=== PATIENT | male | born 1985 | race African-American/Black ===

== ENCOUNTER 2016-11-03 11:43 | Emergency (ER) | payer OTHER ==
[2016-11-03] MEDS ORDERED: cefTRIAXone VIAL(*) 250 MG VIAL IM ONE (13:11)
[2016-11-03] MEDS ORDERED: Azithromycin TAB* 250 MG PO ONE (13:11)
[2016-11-03] MEDS ORDERED: Lidocaine 1% MPF* 2 ML VIAL INJ ONE (13:14)
--- NOTE | 2016-11-03 13:18 | UC ---
blanca Peoples Timothy, scribed for Apoorva Degroot MD on 11/03/16 at 1305 . General HPI - HPI Summary HPI Summary: Flaco Fan is a 31 yo male presenting to [facility] after being sent here by his PCP for injection of cetriaxone for possible STD. He states he has had penile discharge for the past week, with dysuria. No hematuria. No lesions. SO with sx and getting examined today as well. Pt denies abdominal pain. No n/v No bowel changes. Pt had urinalysis at PCP which revealed 2+ wbc. pt with h/o STD and this feels similar. He states his Sx feel similar to episodes in the past. He denies any PMHx. Pt medication list reviewed this visit. - History of Current Complaint Chief Complaint: UCGU Stated Complaint: UTI Time Seen by Provider: 11/03/16 12:59 Hx Obtained From: Patient Onset/Duration: Sudden Onset, Lasting Days, Still Present Timing: Intermittent Episodes Lasting: - with urination Onset Severity: Moderate Current Severity: Mild Associated Signs & Symptoms: Positive: Dysuria, Other - penile discharge - Allergy/Home Medications Allergies/Adverse Reactions: Allergies Allergy/AdvReac Type Severity Reaction Status Date / Time No Known Allergies Allergy Verified 11/03/16 11:51 Home Medications: Home Medications NK [No Home Medications Reported] 11/03/16 [History Confirmed 11/03/16] PMH/Surg Hx/FS Hx/Imm Hx Previously Healthy: Yes - Surgical History Surgical History: None - Family History Known Family History: Positive: Other - breast CA Negative: Cardiac Disease, Diabetes - Social History Alcohol Use: Occasionally Substance Use Type: Marijuana Smoking Status (MU): Heavy Every Day Tobacco Smoker Type: Cigarettes Amount Used/How Often: 1 ppd Have You Smoked in the Last Year: Yes Household Exposure Type: Cigarettes Review of Systems Constitutional: Negative Skin: Negative Eyes: Negative ENT: Negative Respiratory: Negative Cardiovascular: Negative Gastrointestinal: Negative Genitourinary: Dysuria, Other - penile discharge Motor: Negative Neurovascular: Negative Musculoskeletal: Negative Neurological: Negative Psychological: Negative All Other Systems Reviewed And Are Negative: Yes Physical Exam Triage Information Reviewed: Yes Appearance: Well-Appearing, No Pain Distress, Well-Nourished Vital Signs: Initial Vital Signs Temp 98.8 F 11/03/16 11:46 Pulse 65 11/03/16 11:46 Resp 18 11/03/16 11:46 BP 107/68 11/03/16 11:46 Pulse Ox 98 11/03/16 11:46 Vital Signs Reviewed: Yes Eye Exam: Normal ENT Exam: Normal Dental Exam: Normal Neck exam: Normal Neck: Positive: 1 Respiratory Exam: Normal Cardiovascular Exam: Normal Abdominal Exam: Normal Abdomen Description: Positive: Nontender, No Organomegaly, Soft. Negative: CVA Tenderness (R), CVA Tenderness (L) Bowel Sounds: Positive: Present Musculoskeletal Exam: Normal Neurological Exam: Normal Psychological Exam: Normal Skin Exam: Normal Course/Dx - Course Course Of Treatment: Flaco Fna is a 31 yo male presenting to [facility] with penile discharge and dysuria for the past week, seen by his PCP urine with 2+ wbc and sent here for tx. will check urine gc/ch. Im ceftriaxone and oral zithromax. d/w pt STD prevention. aware not treating or testing for hiv, hep and other STDs - Differential Dx - Multi-Symptom Provider Diagnoses: penile discharge Discharge - Discharge Plan Condition: Stable Disposition: HOME Patient Education Materials: Nonspecific Urethritis in Men (ED) Referrals: Richard Grossman MD [Primary Care Provider] - If Needed Additional Instructions: - You were treated for a presumed sexually transmitted disease today based of your symptoms and your urine result. Your urine was sent specifically for testing of gonorrhea and Chlamydia. - your partners should be tested and evaluated for treatment as well - the site of your injection may have discomfort tomorrow- this is normal. Okay to alternate ibuprofen (Advil, motrin) and tylenol for pain - Using a condom with all intercourse relations will decrease contraction of sexually transmitted diseases. You were not tested for other sexually transmitted such as HIV, Hepatitis - contact your doctor or return with questions or concerns Follow up with your primary care physician regrading your visit to urgent care today. Return to urgent care or the emergency department with any new symptoms or questions or concerns. The documentation as recorded by the blanca chaves Timothy accurately reflects the service I personally performed and the decisions made by me, Apoorva Degroot MD.
[2016-11-03 13:52] VITALS: BP 128/79
== END 2016-11-03 13:52 | disposition home or self-care (01) ==
LOC: UCEAST 11:43
DX: R36.9 Urethral discharge, unspecified (principal); Z72.0 Tobacco use
CPT/HCPCS: 87491; 87591; 96372; 99212; A9270-GY; G0463; J0696

== ENCOUNTER → 2017-04-23 07:14 | Emergency (ER) | payer OTHER ==
[~2017-04-23 07:14] MED LIST: Azithromycin TAB* 250 MG PO ONE; Lidocaine 1%* 5 ML VIAL ONE; cefTRIAXone VIAL(*) 250 MG VIAL IM ONE
[2017-04-23 07:43] LABS: Urine Bilirubin Negative (Negative); Urine Glucose Negative (Negative); Urine Nitrite Negative (Negative)
[2017-04-23 09:18] VITALS: BP 134/90
--- NOTE | 2017-04-24 10:12 | ED ---
Lucien Peoples Stephanie, scribed for Kishan Worley MD on 04/23/17 at 0906 . GI/ HPI - HPI Summary HPI Summary: Pt is a 1 y/o M presenting to the ED with c/o penal discharge that occurred after unprotected oral sex within the last two days. Symptoms include a hot, burning sensation and white discharge with urination. Pt denies fever. Pt denies blood in mouth of partner. - History of Current Complaint Chief Complaint: EDUrogenitalProblems Time Seen by Provider: 04/23/17 08:28 Stated Complaint: GROIN PAIN Hx Obtained From: Patient Onset/Duration: Started Days Ago - 2 Timing: Constant Pain Intensity: 2 Additional Locations for Males: Penis Pain Characteristics: Burning Associated Signs and Symptoms: Positive: Discharge - white, New Sexual Partner Additional Signs & Symptoms: Positive: Penile Discharge Aggravating Factor(s): Nothing Alleviating Factor(s): Nothing - Allergy/Home Medications Allergies/Adverse Reactions: Allergies Allergy/AdvReac Type Severity Reaction Status Date / Time No Known Allergies Allergy Verified 11/03/16 11:51 PMH/Surg Hx/FS Hx/Imm Hx Endocrine/Hematology History: Denies: Hx Diabetes, Hx Thyroid Disease Cardiovascular History: Denies: Hx Hypertension Respiratory History: Denies: Hx Asthma, Hx Chronic Obstructive Pulmonary Disease (COPD) GI History: Denies: Hx Ulcer Infectious Disease History: No Infectious Disease History: Denies: Hx Hepatitis, Hx Human Immunodeficiency Virus (HIV), History Other Infectious Disease, Traveled Outside the [place] in Last 30 Days - Family History Known Family History: Positive: Other - breast CA Negative: Cardiac Disease, Diabetes - Social History Alcohol Use: Occasionally Substance Use Type: Reports: Marijuana Smoking Status (MU): Heavy Every Day Tobacco Smoker Type: Cigarettes Amount Used/How Often: 1 ppd Have You Smoked in the Last Year: Yes Review of Systems Negative: Fever, Chills Negative: Erythema Negative: Sore Throat Negative: Chest Pain Negative: Shortness Of Breath, Cough Negative: Abdominal Pain, Vomiting, Nausea Negative: dysuria, hematuria Negative: Myalgia, Edema Negative: Rash Neurological: Other - Negative: dizziness All Other Systems Reviewed And Are Negative: Yes Physical Exam - Summary Physical Exam Summary: Constitutional: Well-developed, Well-nourished, Alert. (-) Distressed Skin: Warm, Dry HENT: Normocephalic; Atraumatic Eyes: Conjunctiva normal Neck: Musculoskeletal ROM normal neck. (-) JVD, (-) Stridor, (-) Tracheal deviation Cardio: Rhythm regular, rate normal, Heart sounds normal; Intact distal pulses; The pedal pulses are 2+ and symmetric. Radial pulses are 2+ and symmetric. (-) Murmur Pulmonary/Chest wall: Effort normal. (-) Respiratory distress, (-) Wheezes, (-) Rales Abd: Soft, (-) Tenderness, (-) Distension, (-) Guarding, (-) Rebound Musculoskeletal: (-) Edema Lymph: (-) Cervical adenopathy Neuro: Alert, Oriented x3 Psych: Mood and affect Normal GI: No obvious penal discharge Triage Information Reviewed: Yes Vital Signs On Initial Exam: Initial Vitals Temp Pulse Resp BP Pulse Ox 97.3 F 76 17 128/96 97 04/23/17 07:18 04/23/17 07:18 04/23/17 07:18 04/23/17 07:18 04/23/17 07:18 Vital Signs Reviewed: Yes - [place] Coma Scale Coma Scale Total: 15 Diagnostics - Vital Signs Vital Signs Temp Pulse Resp BP Pulse Ox 04/23/17 07:18 97.3 F 76 17 128/96 97 - Laboratory Lab Results: Lab Results 04/23/17 Range/Units 07:30 Urine Color Yellow Urine Appearance Clear Urine pH 7.0 (5-9) Ur Specific [place] 1.006 L (1.010-1.030) Urine Protein Negative (Negative) Urine Ketones Negative (Negative) Urine Blood Negative (Negative) Urine Nitrate Negative (Negative) Urine Bilirubin Negative (Negative) Urine Urobilinogen Negative (Negative) Ur Leukocyte Esterase Negative (Negative) Urine Glucose Negative (Negative) Lab Statement: Any lab studies that have been ordered have been reviewed, and results considered in the medical decision making process. GIGU Course/Dx - Course Course Of Treatment: Pt will be discharged after receiving empiric antibiotics in ED, cultures pending. RETURN TO THE EMERGENCY DEPARTMENT FOR CHANGING OR WORSENING SYMPTOMS - Diagnoses Provider Diagnoses: Discharge from penis Discharge - Discharge Plan Condition: Good Disposition: HOME Referrals: Richard Grossman MD [Primary Care Provider] - The documentation as recorded by the Lucien chaves Stephanie accurately reflects the service I personally performed and the decisions made by , Kishan Worley MD.
== END | disposition home or self-care (01) ==
LOC: ED 07:14
DX: R36.9 Urethral discharge, unspecified (principal); F17.210 Nicotine dependence, cigarettes, uncomplicated
CPT/HCPCS: 81003; 96372; 99281; A9270-GY; J0696

== ENCOUNTER 2018-02-17 00:11 | Emergency (ER) | payer OTHER ==
[2018-02-17] MEDS ORDERED: Penicillin VK TAB* 250 MG PO ONE (01:08)
[2018-02-17] MEDS ORDERED: HYDROcodone/ACETAMIN 5-325 MG* 1 TAB PO ONE (01:08)
--- NOTE | 2018-02-17 01:12 | ED ---
Throat Pain/Nasal Congestion - HPI Summary HPI Summary: Patient complains of left lower rear dental pain 3 days. Patient states he has been waiting 1 year for dentist to call him regarding an appointment. Denies purulent discharge from his mouth, trauma, Fever, NEGRETE, cough, sore throat , CP, SOB, N/V/D, abdominal pain, change in urine, change in BM. Medical history is none. - History of Current Complaint Chief Complaint: EDDentalPain Time Seen by Provider: 02/17/18 00:52 Hx Obtained From: Patient Onset/Duration: Gradual Onset Severity: Severe Associated Signs And Symptoms: Positive: Negative Cough: None - Allergies/Home Medications Allergies/Adverse Reactions: Allergies Allergy/AdvReac Type Severity Reaction Status Date / Time No Known Allergies Allergy Verified 02/17/18 00:19 PMH/Surg Hx/FS Hx/Imm Hx Endocrine/Hematology History: Denies: Hx Diabetes, Hx Thyroid Disease Cardiovascular History: Denies: Hx Hypertension Respiratory History: Denies: Hx Asthma, Hx Chronic Obstructive Pulmonary Disease (COPD) GI History: Denies: Hx Ulcer History: Denies: Hx Dialysis Infectious Disease History: No Infectious Disease History: Denies: Hx Hepatitis, Hx Human Immunodeficiency Virus (HIV), History Other Infectious Disease, Traveled Outside the [place] in Last 30 Days - Family History Known Family History: Positive: Other - breast CA Negative: Cardiac Disease, Diabetes - Social History Alcohol Use: Occasionally Substance Use Type: Reports: Marijuana Smoking Status (MU): Heavy Every Day Tobacco Smoker Type: Cigarettes Amount Used/How Often: 1 ppd Have You Smoked in the Last Year: Yes Review of Systems Constitutional: Negative Eyes: Negative Positive: Dental Pain Cardiovascular: Negative Respiratory: Negative Gastrointestinal: Negative Genitourinary: Negative Musculoskeletal: Negative Skin: Negative Neurological: Negative Psychological: Normal All Other Systems Reviewed And Are Negative: Yes Physical Exam - Summary Physical Exam Summary: No evidence of oral lesions, dental abscess. Multiple dental caries. Triage Information Reviewed: Yes Vital Signs On Initial Exam: Initial Vitals Temp Pulse Resp BP Pulse Ox 97.9 F 89 20 142/85 99 02/17/18 00:16 02/17/18 00:16 02/17/18 00:16 02/17/18 00:16 02/17/18 00:16 Vital Signs Reviewed: Yes Appearance: Positive: Well-Appearing Skin: Positive: Warm Head/Face: Positive: Normal Head/Face Inspection Eyes: Positive: Normal ENT: Positive: Normal ENT inspection Dental: Positive: Other Neck: Positive: Supple Respiratory/Lung Sounds: Positive: Clear to Auscultation Cardiovascular: Positive: Normal Abdomen Description: Positive: Nontender Musculoskeletal: Positive: Normal Neurological: Positive: Normal Psychiatric: Positive: Normal AVPU Assessment: Alert - [place] Coma Scale Best Eye Response: 4 - Spontaneous Best Motor Response: 6 - Obeys Commands Best Verbal Response: 5 - Oriented Coma Scale Total: 15 Diagnostics - Vital Signs Vital Signs Temp Pulse Resp BP Pulse Ox 02/17/18 00:16 97.9 F 89 20 142/85 99 - Laboratory Lab Statement: Any lab studies that have been ordered have been reviewed, and results considered in the medical decision making process. EENT Course/Dx - Course Course Of Treatment: Patient complains of left lower rear dental pain 3 days. Patient states he has been waiting 1 year for dentist to call him regarding an appointment. Denies purulent discharge from his mouth, trauma, Fever, NEGRETE, cough , sore throat, CP, SOB, N/V/D, abdominal pain, change in urine, change in BM. Medical history is none. Physical exam:No evidence of oral lesions, dental abscess. Multiple dental caries. Vital signs within normal limits. Rx for Pen -Vee K and pain control. [facility] reference #[id number] - Diagnoses Provider Diagnoses: Pain, dental Discharge - Sign-Out/Discharge Documenting (check all that apply): Patient Departure - Discharge Plan Condition: Stable Disposition: HOME Prescriptions: HYDROcodone/ACETAMIN 5-325 MG* [Clay 5-325 TAB*] 1 tab PO TID 2 Days #6 tab MDD 3 tabs Penicillin VK 500 MG TAB(NF) [Penicillin VK 500 mg Tab] 500 mg PO QID 7 Days # 28 tab Patient Education Materials: Toothache (ED) Referrals: Richard Grossman MD [Primary Care Provider] - Additional Instructions: Follow-up with a dentist as soon as possible. Return to the ED for any new or worsening symptoms - Billing Disposition and Condition Condition: STABLE Disposition: Home
[2018-02-17 01:30] VITALS: BP 132/74
== END 2018-02-17 01:29 | disposition home or self-care (01) ==
LOC: ED 00:11
DX: K08.89 Other specified disorders of teeth and supporting structures (principal); F17.210 Nicotine dependence, cigarettes, uncomplicated
CPT/HCPCS: 99281; A9270-GY

== ENCOUNTER 2018-10-28 21:56 | Emergency (ER) | payer OTHER ==
--- OUTSIDE RECORDS SUMMARY | 2018-10-28 22:06 | XMS REPORT | Continuity of Care Document ---
:1985 External Reference #:[id number] Author Name Neva Godfrey Care Team Providers Name Role Phone Jair Alas III, MD Primary Care Physician Unavailable Payers Date Identification Numbers Payment Provider Subscriber Effective: 2014 Policy Number: [id number] Kody Joyner Group Name: [id number] [address] PayID: [id number] [place] [address] PayID: [id number] Workers Compensation Aurora Joyner Problems Active Problems Provider Date Urethral discharge Richard Grossman M.D. Onset: 12/01/2016 Dysuria Richard Grossman M.D. Onset: 04/10/2014 Family History Date Family Member(s) Observation Comments Father Gallstones Mother Breast cancer Social History Type Date Description Comments Sex Unknown Marital Status Occupation Currently Working [employer] [employer] Tobacco Use Reviewed: 03/18/16 Heavy tobacco smoker (more than 10 cigarettes/day) Smoking Status Reviewed: 10/19/18 Heavy tobacco smoker (more than 10 cigarettes/day) ETOH Use consumes 4-5 beers per week Tobacco Use Start: Unknown Patient is a current smoker, smokes every day Recreational Drug Use Sporadically uses Marijuana Allergies, Adverse Reactions, Alerts Description No Known Drug Allergies Medications Active Medications SIG Qnty Indications Ordering Provider Date Mupirocin apply 3 times a 22gm L03.019 Jair Alas, 10/19/2018 2% Ointment day for 10 days M.D. History Medications No Active Medications Unknown 10/19/2018 - 10/19/2018 Metronidazole 4 cap 1 dose /no 4tabs Z11.3 Thang Madrid NP 03/09/2018 - 500mg alcohol until 5 10/19/2018 Tablets days after you are done. Ibuprofen 1 tab by mouth up 28tabs K08.89 Jair IversonKarsten 02/20/2018 - 600mg Tablets to 4 times a day Nichole Alas 10/19/2018 as needed Azithromycin 2 tab one dose 2tabs R36.9 Paige 12/01/2016 - 500mg Nichole Grossman 02/20/2018 Tablets No Active Medications Unknown 11/18/2016 - 11/18/2016 Baclofen take 1 tablets by 30tabs M54.14 Paige 11/18/2016 - 10mg Tablets mouth twice a day Nichole Grossman 02/20/2018 Azithromycin 2 tab one dose 2tabs Paige 11/04/2016 - 500mg Nichole Grossman 11/17/2016 Tablets Doxycycline Hyclate 1 by mouth twice 14tabs Paige 11/04/2016 - a day Nichole Grossman 11/17/[address] Klarissa zamudio whole body 30gm Paige 08/02/2016 - 5% Cream below neck,keep Nichole Grossman 11/03/2016 overnight and shower in in the morning Azithromycin 2 tabs at once, 2tabs Jorge Rosenberg, 07/28/2015 - 500mg take with food [employer] WORK[employer] 01/06/2016 Tablets Azithromycin 2 tabs at once, 2tabs R36.9 Jorge Rosenberg, 07/28/2015 - 500mg take with food [employer] WORK[employer] 07/30/2015 Tablets Mupirocin apply thin layer 22gm L02.235 Jorge Rosenberg 01/21/2015 - 2% Ointment ointment [employer] WORKER 07/28/2015 topically 3 times a day x's 10 days Cetirizine HCL 1 by mouth every 30tabs J30.9 Jorge Rosenberg, 01/21/2015 - 10mg day [employer] WORK[employer] 01/06/2016 Tablets Fluticasone 2 sprays each 16gm J30.9 Jorge Rosenberg, 01/21/2015 - Propionate nostril daily as SIZE WORKER 11/17/2016 50mcg/Act needed Suspension No Active Medications Unknown 08/13/2014 - 08/13/2014 Meloxicam once daily with 15tabs 719.44 Richard 08/13/2014 - 15mg Tablets food Nichole Grossman 07/28/2015 Tramadol HCL three times a day 15tabs 719.44 Richard 08/13/2014 - 50mg as needed Nichole Grossman 07/28/2015 Tablets No Active Medications Unknown 04/10/2014 - 04/10/2014 Doxycycline Hyclate 1 by mouth twice 14tabs 788.1 Richard 04/10/2014 - a day Nichole Grossman 08/12/2014 100mg Tablets Penicillin V unsure how often Unknown - Potassium he is suppose to 03/09/2018 500mg Tablets take Hydrocodone-Acetamino Unknown - phen 03/09/2018 5-325mg Tablets Medications Administered in Office Medication SIG Qnty Indications Ordering Provider Date PPD Richard Grossman M.D. 04/20/2017 Injection Vital Signs Date Vital Result Comment 10/19/2018 2:40pm Height 68.25 inches 5'8.25" Weight 182.00 lb Heart Rate 87 /min BP Systolic Sitting 117 mmHg BP Diastolic Sitting 80 mmHg BMI (Body Mass Index) 27.5 kg/m2 09/06/2018 2:22pm Height 68.25 inches 5'8.25" Weight 183.00 lb Heart Rate 88 /min BP Systolic Sitting 108 mmHg BP Diastolic Sitting 66 mmHg Body Temperature 97.9 F O2 % BldC Oximetry 98 % BMI (Body Mass Index) 27.6 kg/m2 05/10/2018 10:17am Height 68.25 inches 5'8.25" Weight 195.00 lb Heart Rate 80 /min BP Systolic Sitting 124 mmHg BP Diastolic Sitting 81 mmHg Body Temperature 97.3 F BMI (Body Mass Index) 29.4 kg/m2 03/09/2018 9:11am Height 68.25 inches 5'8.25" Weight 195.00 lb Heart Rate 83 /min BP Systolic Sitting 124 mmHg BP Diastolic Sitting 82 mmHg Body Temperature 97.6 F BMI (Body Mass Index) 29.4 kg/m2 02/20/2018 1:33pm Height 68.25 inches 5'8.25" Weight 202.00 lb Heart Rate 74 /min BP Systolic Sitting 122 mmHg BP Diastolic Sitting 60 mmHg Body Temperature 97.2 F Pain Level 11 O2 % BldC Oximetry 99 % BMI (Body Mass Index) 30.5 kg/m2 12/01/2016 2:45pm Weight 216.50 lb Heart Rate 87 /min BP Systolic 120 mmHg BP Diastolic 80 mmHg Body Temperature 98.5 F O2 % BldC Oximetry 97 % 11/18/2016 11:45am Weight 220.00 lb with shoes 11/03/2016 10:57am Weight 219.50 lb Heart Rate 67 /min BP Systolic 110 mmHg BP Diastolic 70 mmHg Body Temperature 97.3 F O2 % BldC Oximetry 98 % 03/18/2016 2:10pm Weight 230.00 lb Heart Rate 86 /min BP Systolic Sitting 111 mmHg BP Diastolic Sitting 77 mmHg Body Temperature 96.4 F O2 % BldC Oximetry 98 % 01/06/2016 2:28pm Height 68.25 inches 5'8.25" Weight 229.25 lb Heart Rate 82 /min BP Systolic Sitting 125 mmHg BP Diastolic Sitting 86 mmHg Body Temperature 97.8 F O2 % BldC Oximetry 98 % BMI (Body Mass Index) 34.6 kg/m2 07/28/2015 9:51am Height 68.25 inches 5'8.25" Weight 230.00 lb Heart Rate 74 /min BP Systolic Sitting 112 mmHg BP Diastolic Sitting 82 mmHg Body Temperature 96.8 F O2 % BldC Oximetry 96 % BMI (Body Mass Index) 34.7 kg/m2 01/21/2015 9:29am Height 68.25 inches 5'8.25" Weight 219.00 lb Heart Rate 80 /min BP Systolic Sitting 130 mmHg BP Diastolic Sitting 86 mmHg Body Temperature 97.6 F O2 % BldC Oximetry 98 % BMI (Body Mass Index) 33.1 kg/m2 08/13/2014 11:08am Height 68.25 inches 5'8.25" Weight 215.38 lb Heart Rate 92 /min BP Systolic Sitting 136 mmHg BP Diastolic Sitting 88 mmHg Body Temperature 97.4 F O2 % BldC Oximetry 97 % BMI (Body Mass Index) 32.5 kg/m2 04/10/2014 2:14pm Height 68.25 inches 5'8.25" Weight 223.00 lb Heart Rate 66 /min BP Systolic Sitting 113 mmHg BP Diastolic Sitting 74 mmHg Body Temperature 97.7 F BMI (Body Mass Index) 33.7 kg/m2 Results Test Date Facility Test Result H/L Range Note Urine Culture And [facility] Urine Culture SEE RESULT 1, 2 Sensitivities [address] [place] [address] [phone] GC/Chlamydia [facility] Chlamydia Negative Negative Amplified Rna [address] [place] [address] [phone] Neisseria gonorrhoeae (GC) Rna Negative Negative Ua Routine 09/06/2018 [facility] Ua Specific [place] 1.020 Ua PH 5 Ua Color dark yellow Ua Appera cloudy Ua WBC neg Ua Protein neg Ua Glucose neg Ua Ketones neg Ua Bilirubin neg Ua Urobilinogen neg Ua Nitrite neg Ua Occult Blood neg Urinalysis Profile 05/10/2018 [facility] Urine Color Kelly [address] [place] [address] [phone] Urine Appearance Cloudy Urine Specific [place] 1.021 N 1.010-1.030 Urine pH 6.0 N 5-9 Urine Urobilinogen Positive Abnormal Negative Urine Ketones Trace Abnormal Negative Urine Protein Negative Negative Urine Leukocytes Negative Negative Urine Blood Negative Negative Urine Nitrite Negative Negative Urine Bilirubin Negative Negative Urine Glucose Negative Negative GC/Chlamydia 05/10/2018 [facility] Chlamydia Negative Negative Amplified Rna [address] [place] [address] [phone] Neisseria gonorrhoeae (GC) Rna Negative Negative Urine Culture And 05/10/2018 [facility] Urine Culture SEE RESULT 4, [address] [place] [address] [phone] Urinalysis Profile 04/23/2017 [facility] Urine Color Yellow [address] [place] [address] [phone] Urine Appearance Clear Urine Specific [place] 1.006 Low 1.010-1.030 Urine pH 7.0 N 5-9 Urine Urobilinogen Negative Negative Urine Ketones Negative Negative Urine Protein Negative Negative Urine Leukocytes Negative Negative Urine Blood Negative Negative Urine Nitrite Negative Negative Urine Bilirubin Negative Negative Urine Glucose Negative Negative GC/Chlamydia 12/01/2016 [facility] Chlamydia Negative N Negative Amplified Rna [address] [place] [address] [phone] Neisseria gonorrhoeae (GC) Rna Negative N Negative GC/Chlamydia 11/03/2016 [facility] Chlamydia Negative N Negative 6 Amplified Rna [address] [place] [address] [phone] Neisseria gonorrhoeae (GC) Rna Positive Abnormal Negative GC/Chlamydia 11/03/2016 [facility] Chlamydia Negative N Negative Amplified Rna [address] [place] [address] [phone] Neisseria gonorrhoeae (GC) Rna Positive Abnormal Negative Ua Routine 11/03/2016 [facility] Ua Specific [place] 1020 Ua PH 5 Ua Color kelly Ua Appera cloudy Ua WBC ++ Ua Protein trace Ua Glucose normal Ua Ketones negative Ua Bilirubin + Ua Urobilinogen normal Ua Nitrite negative Ua Occult Blood trace Laboratory test 03/18/2016 [facility] Rapid Strep A SEE RESULT [address] [place] [address] [phone] Laboratory test 03/18/2016 [facility] Rapid Strep Negative N Negative [address] [place] [address] [phone] Ua Routine 01/06/2016 [facility] Ua Specific 1.015 [place] Ua PH 5 Ua Color yellow Ua Appera clear Ua WBC neg Ua Protein neg Ua Glucose neg Ua Ketones neg Ua Bilirubin neg Ua Urobilinogen neg Ua Nitrite neg Ua Occult Blood neg GC/Chlamydia 01/06/2016 [facility] Chlamydia Negative N Negative Amplified Rna [address] [place] [address] [phone] Neisseria gonorrhoeae (GC) Rna Negative N Negative GC/Chlamydia 07/28/2015 [facility] Chlamydia Negative N Negative Amplified Rna [address] [place] [address] [phone] Neisseria gonorrhoeae (GC) Rna Negative N Negative Ua Routine 07/28/2015 [facility] Ua Specific [place] 1.015 Ua PH 5 Ua Color yellow Ua Appera clear Ua WBC neg Ua Protein trace Ua Glucose neg Ua Ketones neg Ua Bilirubin ++ Ua Urobilinogen normal Ua Nitrite neg Ua Occult Blood neg Ua Routine 04/10/2014 [facility] Ua Specific [place] 1.010 Ua PH 6.5 Ua Color yellow Ua Appera clear Ua WBC neg Ua Protein trace Ua Glucose neg Ua Ketones trace Ua Bilirubin small Ua Urobilinogen neg Ua Nitrite neg Ua Occult Blood neg 1 [id number] 2 SEE RESULT BELOW Name: AURORA JOYNER : [address]: Jair Alas III, MD Acct: [id number] Unit: [id number] AGE: 32 Location: [facility] Re09/06/18 SEX: M Status: REG REF SPEC: [id number] DEVORAH: 09/06/18-[address] [facility] [address]: Jair Alas III, MD REQ: [id number] RECD: 09/06/18 STATUS: COMP _ SOURCE: URINE SPDESC: ORDERED: Urine Culture COMMENTS: [id number] Urine Source: Random Procedure Result Reported Site Urine Culture Final 09/07/18- 1602 ML No growth of clinically significant organisms * ML - Main Lab . END OF REPORT DEPARTMENT OF PATHOLOGY, [address] [place] [address] Vance Pinon M.D. Director [facility] # [id number] 5 SEE RESULT BELOW Name: AURORA JOYNER : [address]: Thang Madrid NP Acct: [id number] Unit: [id number] AGE: 32 Location: [facility] Re05/10/18 SEX: M Status: REG REF SPEC: [id number] DEVORAH: 05/10/18-[address]: Thang Madrid NP REQ: [id number] RECD: 05/10/18 STATUS: COMP _ SOURCE: URINE SPDESC: ORDERED: Urine Culture COMMENTS: [id number] QUERIES: Urine Source: Random Procedure Result Reported Site Urine Culture Final 05/11/18- 1607 ML No Growth (<1,000 CFU/mL) * ML - Main Lab . END OF REPORT DEPARTMENT OF PATHOLOGY, [address] [place] [address] Vance Pinon M.D. Director [facility] # [id number] SEE RESULT BELOW Name: AURORA JOYNER : [address]: Josh Mesa MD Acct: [id number] Unit: [id number] AGE: 30 Location: [facility] Re03/18/16 SEX: M Status: REG REF SPEC: [id number] DEVORAH: 03/18/[address] [facility] [address]: Jose Angel Mesa MD REQ: [id number] RECD: 03/18/16 STATUS: COMP _ SOURCE: THROAT SPDESC: ORDERED: Strep A Request, Throat Culture COMMENTS: [id number] Procedure Result Reported Site Rapid Strep A Request Final 03/18/16- 2141 ML Specimen received for Rapid Strep A Molecular testing Throat Culture Final 03/20/16- 1336 ML Organism 1 NORMAL KRISTA Quantity 3+ * ML - MAIN LAB ([facility]) . END OF REPORT * ML=Testing performed at Main Lab DEPARTMENT OF PATHOLOGY, [address] [place] [address] Vance Pinon M.D. Director [facility] # [id number] Wardrobe Stylist: [id number] Bayron Jimenez Encounters Type Date Location Provider Dx Diagnosis Office Visit 09/06/2018 [facility] Jair Alas, R30.0 Dysuria 1:40p Medicine - Jackson M.DKarsten Office Visit 05/10/2018 [facility] Thang Madrid NP Z11.3 Encntr screen for 10:20a [facility]miss Office Visit 03/09/2018 [facility] Richard Grossman Z11.3 Encntr screen for 8:40a Medicine - Suite M.D. infections w sexl R mode of transmiss Z20.2 Contact w and exposure to infect w a sexl mode of transmiss Office Visit 02/20/2018 DoNotUse [facility] Jair Buenrostro K08.89 Other specified 1:40p Kevin-Santhosh Alas M.D. disorders of teeth and supporting structures Office Visit 12/01/2016 [facility] Richard R36.9 Urethral 2:30p adalberto Jackson M.D. unspecified Office Visit 11/18/2016 [facility] Richard M54.14 Radiculopathy, 11:40a Priyanka Grossman thoracic region Radha.DKarsten Office Visit 11/03/2016 [facility] Richard R36.9 Urethral 10:40a adalberto Jackson MKarstenDKarsten unspecified Office Visit 03/18/2016 [facility] Medicine - Jose Angel Parnell J02.9 Acute 2:00p Priyanka Mesa pharyngitisNichole,FACP unspecified Office Visit 01/06/2016 [facility] Richard R30.0 Dysuria 2:20p Priyanka Grossman M.D. Office Visit 07/28/2015 [facility] Internal Medicine - Jorge R36.9 Urethral 9:40a Suite Mitch Rosenberg NP discharge, unspecified Z11.3 Encntr screen for infections w sexl mode of transmiss Office Visit 01/21/2015 9:30a [facility] Jorge Rosenberg, L02.235 [place]un[place] of Medicine - Suite SIZE WORKER perineum R J30.9 Allergic rhinitis, unspecified Office Visit 08/13/2014 11:00a [facility] Richard Grossman, 719.44 Pain Joint Medicine - Suite Nichole Hand R Office Visit 04/10/2014 2:00p [facility] Richardluz maria Grossman, 788.1 Dysuria [facility] V74.5 Screening Examination Venereal Disease 719.46 Pain Joint Lower Leg Plan of Treatment Future Appointment(s):2018 3:20 pm - Jair Alas M.D. at [facility] - Jair Alas M.D.L03.019 Cellulitis of unspecified fingerNew Medication:Mupirocin 2 % - apply 3 times a day for 10 days
--- NOTE | 2018-10-29 04:21 | ED ---
Upper Extremity Pain - HPI Summary HPI Summary: A 33 y/o male presents to [facility] with a chief complaint of left middle finger pain and swelling for 3 weeks. He reports that some brown pus came out of it. At triage he rated his pain as a 7/10 in severity. - History of Current Complaint Chief Complaint: EDExtremityUpper Stated Complaint: SWOLLEN FINGER X 3 WEEKS, PUSS PER PT Time Seen by Provider: 10/29/18 04:17 Hx Obtained From: Patient Mechanism Of Injury: Unknown Onset/Duration: Started Weeks Ago Timing: Constant Severity Initially: Moderate Severity Currently: Moderate Pain Location: Finger Character: Unable to Describe Aggravating Factor(s): Nothing Alleviating Factor(s): Nothing Associated Signs & Symptoms: Positive: Swelling. Negative: Fever - Allergies/Home Medications Allergies/Adverse Reactions: Allergies Allergy/AdvReac Type Severity Reaction Status Date / Time No Known Allergies Allergy Verified 10/28/18 22:00 Home Medications: Home Medications Mupirocin 2% OINT* [Bactroban 2 % Oint*] 1 applic TOPICAL TID 10/29/18 [History Confirmed 10/29/18] PMH/Surg Hx/FS Hx/Imm Hx Endocrine/Hematology History: Denies: Hx Diabetes, Hx Thyroid Disease Cardiovascular History: Denies: Hx Hypertension Respiratory History: Denies: Hx Asthma, Hx Chronic Obstructive Pulmonary Disease (COPD) GI History: Denies: Hx Ulcer History: Denies: Hx Dialysis Infectious Disease History: No Infectious Disease History: Denies: Hx Hepatitis, Hx Human Immunodeficiency Virus (HIV), History Other Infectious Disease, Traveled Outside the [place] in Last 30 Days - Family History Known Family History: Positive: Other - breast CA Negative: Cardiac Disease, Diabetes - Social History Alcohol Use: Occasionally Substance Use Type: Reports: Marijuana Smoking Status (MU): Heavy Every Day Tobacco Smoker Type: Cigarettes Amount Used/How Often: 1 ppd Have You Smoked in the Last Year: Yes Review of Systems Negative: Fever Positive: Other - positive: left middle finger swelling and pain All Other Systems Reviewed And Are Negative: Yes Physical Exam - Summary Physical Exam Summary: VITAL SIGNS: Reviewed. GENERAL: Patient is a well-developed and nourished MALE who is lying comfortable in the stretcher. Patient is not in any acute respiratory distress. HEAD AND FACE: No signs of trauma. No ecchymosis, hematomas or skull depressions. No sinus tenderness. EYES: PERRLA, EOMI x 2, No injected conjunctiva, no nystagmus. EARS: Hearing grossly intact. Ear canals and tympanic membranes are within normal limits. MOUTH: Oropharynx within normal limits. NECK: Supple, trachea is midline, no adenopathy, no JVD, no carotid bruit, no c- spine tenderness, neck with full ROM CHEST: Symmetric, no tenderness at palpation LUNGS: Clear to auscultation bilaterally. No wheezing or crackles. CVS: Regular rate and rhythm, S1 and S2 present, no murmurs or gallops appreciated. ABDOMEN: Soft, non-tender. No signs of distention. No rebound no guarding, and no masses palpated. Bowel sounds are normal. EXTREMITIES: FROM in all major joints, no edema, no cyanosis or clubbing, mild tenderness over the ulnar side of the distal left middle finger by the nail, no collection. NEURO: Alert and oriented x 3. No acute neurological deficits. Speech is normal and follows commands. SKIN: Dry and warm Triage Information Reviewed: Yes Vital Signs On Initial Exam: Initial Vitals Temp Pulse Resp BP Pulse Ox 98.7 F 76 16 148/79 94 10/28/18 21:58 10/28/18 21:58 10/28/18 21:58 10/28/18 21:58 10/28/18 21:58 Vital Signs Reviewed: Yes Diagnostics - Vital Signs Vital Signs Temp Pulse Resp BP Pulse Ox 10/29/18 00:01 98.2 F 69 16 117/68 96 10/28/18 21:58 98.7 F 76 16 148/79 94 - Laboratory Lab Statement: Any lab studies that have been ordered have been reviewed, and results considered in the medical decision making process. Course/Dx - Course Course Of Treatment: A 33 y/o male presents to [facility] with a chief complaint of left middle finger pain and swelling for 3 weeks. He reports that some brown pus came out of it. The physical exam revealed mild tenderness over the ulnar side of the distal left middle finger by the nail, no collection. The patient will be discharged with Clindamycin and Motrin and follow up with ortho and his PCP. The patient is agreeable with this plan. - Diagnoses Provider Diagnoses: Paronychia Discharge - Sign-Out/Discharge Documenting (check all that apply): Patient Departure - DC Patient Received Moderate/Deep Sedation with Procedure: No - Discharge Plan Condition: Stable Disposition: HOME Prescriptions: Clindamycin Cap(NF) [Clindamycin Cap 300 mg Cap(NF)] 300 mg PO Q6H #30 cap Ibuprofen TAB* [Motrin TAB* 800 MG] 800 mg PO Q6H PRN #30 tab PRN Reason: Pain Patient Education Materials: Paronychia (ED) Forms: *Work Release Referrals: [facility] [Outside] - 3 Days Fredo Sanchez MD [Medical Doctor] - Additional Instructions: Follow up with Dr. Sanchez. PLEASE RETURN TO THE ED IMMEDIATELY FOR WORSENING OR CONCERNING SYMPTOMS. - Billing Disposition and Condition Condition: STABLE Disposition: Home - Attestation Statements Document Initiated by Belkisibtaniya: Yes Documenting Scribe: Gadiel Gant Provider For Whom Messi is Documenting (Include Credential): Omer Montalvo MD Scribe Attestation: Gadiel Peoples, scribed for Omer Montalvo MD on 10/29/18 at 0546. Scribe Documentation Reviewed: Yes Provider Attestation: The documentation as recorded by the Gadiel chaves accurately reflects the service I personally performed and the decisions made by me, Omer Montalvo MD Status of Scribe Document: Viewed
[2018-10-29] MEDS ORDERED: Clindamycin CAP* 150 MG PO ONE (04:30)
[2018-10-29] MEDS ORDERED: Ibuprofen TAB* 800 MG PO ONE (04:31)
[2018-10-29 04:48] VITALS: BP 123/83
== END 2018-10-29 04:19 | disposition home or self-care (01) ==
LOC: ED 21:56
DX: L03.012 Cellulitis of left finger (principal); F17.210 Nicotine dependence, cigarettes, uncomplicated
CPT/HCPCS: 99282; A9270-GY

== ENCOUNTER 2019-06-23 14:12 | Emergency (ER) | payer OTHER ==
[2019-06-23 14:19] VITALS: BP 145/72
--- OUTSIDE RECORDS SUMMARY | 2019-06-23 14:29 | XMS REPORT | Continuity of Care Document ---
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 Onset: 12/01/2016 Dysuria Richard Grossman M.D. Onset: 04/10/2014 Social History Type Date Description Comments Sex Unknown Tobacco Use Start: Unknown current cigarette smoker 3/4 ppd; began around age 15 Smoking Status Reviewed: 05/15/19 current cigarette smoker 3/4 ppd; began around age 15 ETOH Use consumes 4-5 beers per week Tobacco Use Start: Unknown Patient is a current smoker, smokes every day Recreational Drug Use Sporadically uses Marijuana Allergies, Adverse Reactions, Alerts Description No Known Drug Allergies Medications Active Medications SIG Qnty Indications Ordering Provider Date Ibuprofen 1 po up to 60tabs L03.019 Jair Alas, 01/29/2019 800mg Tablets three times a M.D. day as needed. History Medications No Active Medications Unknown 01/29/2019 - 01/29/2019 No Active Medications Unknown 01/18/2019 - 01/18/2019 Cephalexin 1 by mouth 14tabs L03.019 Jair Buenrostro 01/18/2019 - 500mg twice a day Nichole Alas 01/29/2019 Tablets Medications Administered in Office Medication SIG Qnty Indications Ordering Provider Date PPD Richard Grossman M.D. 04/20/2017 Injection Immunizations Description No Information Available Vital Signs Date Vital Result Comment 05/15/2019 9:41am Height 68.25 inches 5'8.25" Weight 174.00 lb Heart Rate 95 /min BP Systolic Sitting 104 mmHg BP Diastolic Sitting 63 mmHg BMI (Body Mass Index) 26.3 kg/m2 01/29/2019 3:41pm Height 68.25 inches 5'8.25" Weight 178.00 lb Heart Rate 84 /min BP Systolic Sitting 103 mmHg BP Diastolic Sitting 76 mmHg BMI (Body Mass Index) 26.9 kg/m2 Results Test Acquired Date Facility Test Result H/L Range Note Laboratory test 05/15/2019 [facility] [employer] Super[facility] In House Hemoglobin A1c 5.1 5-7 finding Wound 01/29/2019 [facility] Wound/Misc SEE RESULT 1, 2 Culture/Sensi [address] [place] [address] Stain [phone] CBC Auto Diff 01/29/2019 [facility] White Blood 8.6 Normal 3.5 -10.[address] Count 10^3/uL [place], [place] [id number] [phone] Red Blood Count 5.26 10^6/uL Normal 4.18-5.48 Hemoglobin 17.1 g/dL Normal 14.0-18.0 Hematocrit 51 % Normal 42-52 Mean Corpuscular Volume 97 fL High 80-94 Mean Corpuscular Hemoglobin 33 pg High 27-31 Mean Corpuscular HGB Conc 34 g/dL Normal 31-36 Red Cell Distribution Width 14 % Normal 10-15 Platelet Count 238 10^3/uL Normal 150-450 Mean Platelet Volume 8.2 fL Normal 7.4-10.4 Abs Neutrophils 4.4 10^3/uL Normal 1.5-7.7 Abs Lymphocytes 3.2 10^3/uL Normal 1.0-4.8 Abs Monocytes 0.8 10^3/uL Normal 0-0.8 Abs Eosinophils 0.1 10^3/uL Normal 0-0.6 Abs Basophils 0.0 10^3/uL Normal 0-0.2 Abs Nucleated RBC 0.0 10^3/uL Granulocyte % 51.6 % Lymphocyte % 37.8 % Monocyte % 9.0 % Eosinophil % 1.1 % Basophil % 0.5 % Nucleated Red Blood Cells % 0.1 Lipid Profile 01/29/2019 [facility] Triglycerides 44 mg/dL 3 (Trig/Chol/HDL) [address] [place] [address] [phone] Cholesterol 210 mg/dL 4 HDL Cholesterol 57.3 mg/dL 5 LDL Cholesterol 144 mg/dL 6 Comp Metabolic 01/29/2019 [facility] Sodium 142 mmol/L Normal 135-[address] [place] [address] [phone] Potassium 4.0 mmol/L Normal 3.5-5.0 Chloride 108 mmol/L Normal 101-111 Co2 Carbon Dioxide 29 mmol/L Normal 22-32 Anion Gap 5 mmol/L Normal 2-11 Glucose 98 mg/dL Normal 70-100 Blood Urea Nitrogen 15 mg/dL Normal 6-24 Creatinine 1.03 mg/dL Normal 0.67-1.17 BUN/Creatinine Ratio 14.6 Normal 8-20 Calcium 9.4 mg/dL Normal 8.6-10.3 Total Protein 6.2 g/dL Low 6.4-8.9 Albumin 4.1 g/dL Normal 3.2-5.2 Globulin 2.1 g/dL Normal 2-4 Albumin/Globulin Ratio 2.0 Normal 1-3 Total Bilirubin 0.50 mg/dL Normal 0.2-1.0 Alkaline Phosphatase 90 U/L Normal 34-104 Alt 25 U/L Normal 7-52 Ast 22 U/L Normal 13-39 Egfr Non- 82.2 >60 Egfr 99.4 >60 7 1 [id number] 2 SEE RESULT BELOW Name: AURORA JOYNER : [address]: Jair Alas III, MD Acct: [id number] Unit: [id number] AGE: 33 Location: [facility] Re01/29/19 SEX: M Status: REG REF SPEC: [id number] DEVORAH: 01/29/19 [facility] DR: Jair Alas III, MD REQ: [id number] RECD: 01/29/19 STATUS: COMP _ SOURCE: MISC SOURC SPDESC: ORDERED: Culture Stain COMMENTS: [id number] SOURCE IS LEFT MIDDLE FINGER PER FARRUKH REDD by [id number] at 1101 on 01/30/19. Procedure Result Reported Site Wound/Misc Gram Stain Final 01/30/19- 723 ML 1+ Epithelial Cells No Neutrophils Observed No Organisms Seen Wound/Misc Culture Final 01/31/19- 934 ML Organism 1 NORMAL KRISTA Quantity 1+ * ML - Main Lab . END OF REPORT DEPARTMENT OF PATHOLOGY, [address] [place] [address] Vance Pinon M.D. Director [facility] # [id number] 3 Desirable: <150 Borderline High: 150-199 High: 200-499 Very High: >500 4 Desirable: <200 Borderline High: 200-239 High: >239 5 Low: <40 Desirable: 40-60 High: >60 6 Desirable: <100 Near Optimal: 100-129 Borderline High: 130-159 High: 160-189 Very High: >189 7 Because ethnic data is not always readily available, this report includes an eGFR for both -Americans and non- Americans. The National Kidney Disease Education Program (NKDEP) does not endorse the use of the MDRD equation for patients that are not between the ages of 18 and 70, are , have extremes of body size, muscle mass, or nutritional status, or are non- or non-. According to the National Kidney Foundation, irrespective of diagnosis, the stage of the disease is based on the level of kidney function: Stage Description GFR(mL/min/1.73 m(2)) 1 Kidney damage with normal or decreased GFR 90 2 Kidney damage with mild decrease in GFR 60-89 3 Moderate decrease in GFR 30-59 4 Severe decrease in GFR 15-29 5 Kidney failure <15 (or dialysis) Procedures Description No Information Available Medical Devices Description No Information Available Encounters Type Date Location Provider Dx Diagnosis Office Visit 02/26/2019 [facility] Dermatology Alex Burton, L30.8 Other specified 10:00a dermatitis Office Visit 01/29/2019 [facility] Internal Jair Buenrostro L03.019 Cellulitis of 3:20p Medicine - Jackson Alas M.D. unspecified finger Office Visit 01/18/2019 [facility] Internal Jair Castanon03.019 Cellulitis of 11:40a Kevin - Jackson Alas M.D. unspecified finger Z13.220 Encounter for screening for lipoid disorders Z13.1 Encounter for screening for diabetes mellitus Assessments Date Code Description Provider 05/15/2019 S61.300D Unspecified open wound of right index Oksana Marinelli MD finger with damage to nail, subsequent encounter 05/15/2019 F17.210 Nicotine dependence, cigarettes, Oksana Marinelli MD uncomplicated 02/26/2019 L30.8 Other specified dermatitis Alex Burton MD 01/29/2019 L03.019 Cellulitis of unspecified finger Jair Alas M.D. 01/18/2019 L03.019 Cellulitis of unspecified finger Jair Alas M.D. 01/18/2019 Z13.220 Encounter for screening for lipoid Jair Alas M.D. disorders 01/18/2019 Z13.1 Encounter for screening for diabetes Jair Alas M.D. mellitus Plan of Treatment 05/15/2019 - Oksana Marinelli, MDS61.300D Unspecified open wound of right index finger with damage to nail, subsequent encounterReferral:Wound Clinic, Clinic/ CenterFollow up:SLAVA- please have records from Dr Clayton office sent overF17.210 Nicotine dependence, cigarettes, uncomplicated Functional Status Description No Information Available Mental Status Description No Information Available Referrals Refer to Reason for Referral Status Appt Date Wound Clinic Created [address] [place] [address] [phone] Alex Burton MD chronic fingertip pains, ? occ discharge, mainly L Sent middle finger [address], [place] [address] [phone]
--- NOTE | 2019-06-23 15:15 | ED ---
Skin Complaint - HPI Summary HPI Summary: The patient is a 33 y/o M presenting to [facility] with cc of increasing pain and swelling under the nails of multiple fingers on both hands initially onset a year ago with worsening in the last few weeks. He reports that noticed discolorations under the third finger of the left hand and second finger on the right hand about a year ago, and has seen a journalist with Rx for Ureacin. Despite using the cream, he has noticed increasing swelling and pain under the nails, worse on the right hand. He notes purulent discharge from the nail of the second digit on the right hand a while back. He has additionally uses Motrin 800mg to some relief of the pain, but he has not used Tylenol. He denies fevers. Symptoms rated 10/10 in severity. Coldness aggravates the pain. 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 No PMhx. Current smoker, occasional EtOH, marijuana use. Medications reviewed. Allergies noted. 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: - Ibuprofen occasionally Associated Signs & Symptoms: Negative - Allergy/Home Medications Allergies/Adverse Reactions: Allergies Allergy/AdvReac Type Severity Reaction Status Date / Time No Known Allergies Allergy Verified 06/23/19 14:18 Home Medications: Home Medications Acetaminophen TAB* [Tylenol TAB*] 975 mg PO Q8HR PRN #30 tab 06/23/19 [Rx] Clotrimazole 1% CREAM* [Clotrimazole 1%*] 1 applic TOPICAL BID 14 Days #1 tube 06/23/19 [Rx] Urea [Ureacin-10] 236.56 ml TP PC 06/23/19 [History Confirmed 06/23/19] PMH/Surg Hx/FS Hx/Imm Hx Endocrine/Hematology History: Denies: Hx Diabetes, Hx Thyroid Disease Cardiovascular History: Denies: Hx Hypertension Respiratory History: Denies: Hx Asthma, Hx Chronic Obstructive Pulmonary Disease (COPD) GI History: Denies: Hx Ulcer History: Denies: Hx Dialysis Infectious Disease History: No Infectious Disease History: Denies: Hx Hepatitis, Hx Human Immunodeficiency Virus (HIV), History Other Infectious Disease, Traveled Outside the [place] in Last 30 Days - Family History Known Family History: Positive: Other - breast [place] Negative: Cardiac Disease, Diabetes - Social History Alcohol Use: Occasionally Substance Use Type: Reports: Marijuana Smoking Status (MU): Heavy Every Day Tobacco Smoker Type: Cigarettes Amount Used/How Often: 1 ppd Have You Smoked in the Last Year: Yes Review of Systems Negative: Fever Positive: Other - opening of skin with swelling and pain under nails All Other Systems Reviewed And Are Negative: Yes Physical Exam - Summary Physical Exam Summary: Constitutional: Well-developed, Well-nourished, Alert. (-) Distressed Skin: Right second digit with area of necrotic wound with no purulent drainage or erythema, Multiple fingers with fungal type infection under the nails, Warm, Dry HENT: Normocephalic; Atraumatic Eyes: Conjunctiva normal Neck: Musculoskeletal ROM normal neck. (-) JVD, (-) Stridor, (-) Tracheal deviation Cardio: Rhythm regular, rate normal, Heart sounds normal; Intact distal pulses; Radial pulses are 2+ and symmetric. (-) Murmur Pulmonary/Chest wall: Effort normal. (-) Respiratory distress, (-) Wheezes, (-) Rales Abd: Soft, (-) tenderness, (-) Distension, (-) Guarding, (-) Rebound Musculoskeletal: (-) Edema Lymph: (-) Cervical adenopathy Neuro: Alert, Oriented x3 Psych: Mood and affect Normal Triage Information Reviewed: Yes Vital Signs On Initial Exam: Initial Vitals Temp Pulse Resp BP Pulse Ox 99.4 F 98 18 145/72 99 06/23/19 14:14 06/23/19 14:14 06/23/19 14:14 06/23/19 14:14 06/23/19 14:14 Vital Signs Reviewed: Yes Procedures - Sedation Patient Received Moderate/Deep Sedation with Procedure: No Diagnostics - Vital Signs Vital Signs Temp Pulse Resp BP Pulse Ox 06/23/19 14:14 99.4 F 98 18 145/72 99 - Laboratory Lab Statement: Any lab studies that have been ordered have been reviewed, and results considered in the medical decision making process. Course/Dx - Course Course Of Treatment: Patient is here with likely fungal infection of his fingers. Patient also has a chronic wound that is having difficulty healing. Patient has no evidence of currently infected wound. Patient was started on clotrimazole - Diagnoses Provider Diagnoses: Fungal infection, Chronic wound of extremity Discharge ED - Sign-Out/Discharge Documenting (check all that apply): Patient Departure - Patient will be discharged home. - Discharge Plan Condition: Stable Disposition: HOME Prescriptions: Acetaminophen TAB* [Tylenol TAB*] 975 mg PO Q8HR PRN #30 tab PRN Reason: Pain - Severe Clotrimazole 1% CREAM* [Clotrimazole 1%*] 1 applic TOPICAL BID 14 Days #1 tube Patient Education Materials: Paronychia (ED), Chronic Wound Care (ED) Forms: *Work Release Referrals: Jair Alas MD [Primary Care Provider] - 1 Week Additional Instructions: Follow up with your primary care provider or journalist in a week. Please try the medication we have prescribed for you. Apply heat to relieve the pain. Take Ibuprofen with Tylenol as we discussed. Wear gloves while washing dishes. Return to the emergency department for any new or worsening symptoms. - Billing Disposition and Condition Condition: STABLE Disposition: Home - Attestation Statements Document Initiated by Messi: Yes Documenting Scribe: Sherry Metzger Provider For Whom Messi is Documenting (Include Credential): Dr. Sung Cruz MD Scribe Attestation: Sherry Peoples scribed for Dr. Sung Cruz MD on 06/23/19 at 1745. Scribe Documentation Reviewed: Yes Provider Attestation: The documentation as recorded by the Sherry hcaves accurately reflects the service I personally performed and the decisions made by me, Dr. Sung Cruz MD Status of Scribe Document: Viewed
== END 2019-06-23 15:35 | disposition home or self-care (01) ==
LOC: ED 14:12
DX: B35.1 Tinea unguium (principal); S61.401A Unspecified open wound of right hand, initial encounter; X58.XXXA Exposure to other specified factors, initial encounter; Y92.9 Unspecified place or not applicable; F17.210 Nicotine dependence, cigarettes, uncomplicated
CPT/HCPCS: 99282

== ENCOUNTER 2019-07-28 21:30 | Emergency (ER) | payer OTHER ==
[2019-07-28] MEDS ORDERED: Ondansetron INJ* 2 MG/ML VIAL IV ONE (21:36)
[2019-07-28] MEDS ORDERED: fentaNYL* 50 MCG/ML 2 ML VIAL (100 MCG VIAL) IV SLOW PU ONE (21:36)
--- NOTE | 2019-07-28 21:37 | ED ---
Upper Extremity Pain - HPI Summary HPI Summary: 33 year old male presents with right shoulder injury today. He states he was putting a door when he felt his right shoulder dislocate. He is not able to place shoulder below 90. Denies any history of dislocation. No numbness or tingling. He is right-handed. Has history of MRSA. shoulder was dislocated two hours prior to coming here. - History of Current Complaint Stated Complaint: RIGHT SHOULDER PAIN PER EMS Time Seen by Provider: 07/28/19 21:36 - Allergies/Home Medications Allergies/Adverse Reactions: Allergies Allergy/AdvReac Type Severity Reaction Status Date / Time No Known Allergies Allergy Verified 07/28/19 21:36 Home Medications: Home Medications Acetaminophen TAB* [Tylenol TAB*] 975 mg PO Q8HR PRN #30 tab 06/23/19 [Rx] Clotrimazole 1% CREAM* [Clotrimazole 1%*] 1 applic TOPICAL BID 14 Days #1 tube 06/23/19 [Rx] Urea [Ureacin-10] 236.56 ml TP PC 06/23/19 [History Confirmed 06/23/19] PMH/Surg Hx/FS Hx/Imm Hx Endocrine/Hematology History: Denies: Hx Diabetes, Hx Thyroid Disease Cardiovascular History: Denies: Hx Hypertension Respiratory History: Denies: Hx Asthma, Hx Chronic Obstructive Pulmonary Disease (COPD) GI History: Denies: Hx Ulcer History: Denies: Hx Dialysis Infectious Disease History: No Infectious Disease History: Denies: Hx Hepatitis, Hx Human Immunodeficiency Virus (HIV), History Other Infectious Disease, Traveled Outside the [place] in Last 30 Days - Family History Known Family History: Positive: Other - breast [place] Negative: Cardiac Disease, Diabetes - Social History Alcohol Use: Occasionally Substance Use Type: Reports: Marijuana Smoking Status (MU): Heavy Every Day Tobacco Smoker Type: Cigarettes Amount Used/How Often: 1 ppd Have You Smoked in the Last Year: Yes Review of Systems Negative: Fever Negative: Chest Pain Negative: Shortness Of Breath Positive: Myalgia - right shoulder pain All Other Systems Reviewed And Are Negative: Yes Physical Exam Triage Information Reviewed: Yes Vital Signs On Initial Exam: Initial Vitals Temp Pulse Resp BP Pulse Ox 98.7 F 80 20 125/88 98 07/28/19 21:31 07/28/19 21:31 07/28/19 21:31 07/28/19 21:31 07/28/19 21:31 Vital Signs Reviewed: Yes Appearance: Positive: Well-Appearing Skin: Positive: Warm, Dry Head/Face: Positive: Normal Head/Face Inspection Eyes: Positive: Normal, Conjunctiva Clear ENT: Positive: Pharynx normal Respiratory/Lung Sounds: Positive: Clear to Auscultation, Breath Sounds Present Cardiovascular: Positive: Normal, RRR Musculoskeletal: Positive: Limited @ - right shoulder, Other - good pulses, unable to lower shoulder below 90 degree, 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 Neurological: Positive: Normal Psychiatric: Positive: Normal Procedures - Sedation Patient Received Moderate/Deep Sedation with Procedure: Yes Are You The Provider Who Administered The Sedation: [place] of Provider Whom Sedated Patient: Deborah Sage - Joint Reduction shoulder Joint Reduction Site: shoulder (R) Conscious Sedation: Yes Reduction Attempts: 2 Pre-Procedure NV Exam: Yes Post Joint Reduction Film: joint reduced Diagnostics - Vital Signs Vital Signs Temp Pulse Resp BP Pulse Ox 07/28/19 21:31 98.7 F 80 20 125/88 98 - Laboratory Lab Statement: Any lab studies that have been ordered have been reviewed, and results considered in the medical decision making process. - Radiology shoulder Radiology Interpretation Completed By: ED Physician Summary of Radiographic Findings: dislocated shoulder Re-Evaluation - Re-Evaluation First Eval Re-Evaluation Time: 23:55 Comment: patient is still asleep Second Eval Re-Evaluation Time: 00:48 Comment: is now awake and alert and orientated Course/Dx - Course Course Of Treatment: 33 year old male presents with right shoulder injury today. He states he was putting a door when he felt his right shoulder dislocate. He is not able to place shoulder below 90. Denies any history of dislocation. No numbness or tingling. He is right-handed. Has history of MRSA. On exam shoulder is stuck at 90. Neurovascular intact. X-ray shows inferior shoulder dislocation. with multiple attempts was able to get shoulder reduced with dr sage performing sedation. neurovascular intact. gave shoulder immbolizer. will have follow up with ortho. patient understand and agrees with plan. - Diagnoses Differential Diagnosis/HQI/PQRI: Positive: Fracture (Closed), Strain, Other - dislocation Provider Diagnoses: Dislocation of right shoulder joint Discharge ED - Sign-Out/Discharge Documenting (check all that apply): Patient Departure - Discharge Plan Condition: Good Disposition: HOME Patient Education Materials: Shoulder Dislocation (ED), Moderate Sedation (ED) Referrals: Jair Alas MD [Primary Care Provider] - Tony Greco MD [Medical Doctor] - Additional Instructions: Keep in sling Take Tylenol and ibuprofen every 6 hours as needed for pain Ice/heat Follow up with ortho Return to ED if develop any new or worsening symptoms - Billing Disposition and Condition Condition: GOOD Disposition: Home
--- OUTSIDE RECORDS SUMMARY | 2019-07-28 22:19 | XMS REPORT | Continuity of Care Document ---
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 Editor Problems Active Problems Provider Date Urethral discharge [...] Result H/L Range Note Laboratory test 05/15/2019 [facility] Hemoglobin A1c 5.1 5-7 finding Wound 01/29/2019 [facility] Wound/Misc SEE RESULT 1, 2 Culture/Sensi [address] [place] [address] Stain [phone] CBC Auto Diff 01/29/2019 [facility] White Blood 8.6 Normal 3.5 -10.[address] Count 10^3/uL [place], [place] [id number] [phone] Red Blood Count 5.26 10^6/uL Normal 4.18-5.48 [...] Blood Cells % 0.1 Lipid Profile 01/29/2019 [facility] Triglycerides 44 mg/dL 3 (Trig/Chol/HDL) [address] [place] [address] [phone] Cholesterol 210 mg/dL 4 HDL Cholesterol 57.3 mg/dL 5 LDL Cholesterol 144 mg/dL 6 Comp Metabolic 01/29/2019 [facility] Sodium 142 mmol/L Normal 135-[address] [place] [address] [phone] Potassium 4.0 mmol/L Normal 3.5-5.0 Chloride 108 [...] 82.2 >60 Egfr 99.4 >60 7 1 [id number] 2 SEE RESULT BELOW Name: AURORA FAN : [address]: Jair Alas III, MD Acct: [id number] Unit: [id number] AGE: 33 Location: [facility] Re01/29/19 SEX: M Status: REG REF SPEC: [id number] DEVORAH: 01/29/[address] [facility] [address]: Jair Alas III, MD REQ: [id number] RECD: 01/29/19 STATUS: COMP _ SOURCE: MISC SOURC SPDESC: ORDERED: Culture Stain COMMENTS: [id number] SOURCE IS LEFT MIDDLE FINGER PER FARRUKH REDD by [id number] at 1101 on 01/30/19. Procedure Result Reported Site Wound/Misc Gram Stain Final 01/30/19- 723 ML 1+ Epithelial Cells No Neutrophils Observed No Organisms Seen Wound/Misc Culture Final 01/31/19- 934 ML Organism 1 NORMAL KRISTA Quantity 1+ * ML - Main Lab . END OF REPORT DEPARTMENT OF PATHOLOGY, [address] [place] [address] Vance Pinon M.D. Director [facility] # [id number] 3 Desirable: <150 Borderline High: 150-199 High: [...] Date Location Provider Dx Diagnosis Office Visit 07/04/2019 [facility] Dermatology Osmin I73.1 Thromboangiitis 2:00p MD Kurt obliterans [Buerger's disease] Office Visit 06/04/2019 [facility] Dermatology Fredo R L30.8 Other specified 11:30a DO More dermatitis Office Visit 05/15/2019 [facility] Internal Oksana S61.300D Unsp open wound of 9:30a Medicine - Jackson Marinelli MD right index finger w damage to nail, subs F17.210 Nicotine dependence, cigarettes, uncomplicated Office Visit 02/26/2019 [facility] Dermatology Alex Burton, L30.8 Other specified 10:00a dermatitis Office Visit 01/29/2019 [facility] Internal Jair Buenrostro L03.019 Cellulitis of 3:20p Medicine - Jackson Alas M.D. unspecified finger Office Visit 01/18/2019 [facility] Internal Jair Buenrostro L03.019 Cellulitis of 11:40a Medicine - Jackson Alas M.D. unspecified finger Z13.220 Encounter for screening for lipoid disorders Z13.1 Encounter for screening for diabetes mellitus Assessments Date Code Description Provider 07/04/2019 I73.1 Thromboangiitis obliterans [Rosanna To MD disease] 07/04/2019 I73.1 Thromboangiitis obliterans [Rosanna Hicks MD disease] 06/04/2019 L30.8 Other specified dermatitis Alex Burton MD 06/04/2019 L30.8 Other specified dermatitis Fredo Aguero, DO 05/15/2019 S61.300D Unspecified open wound of right [...] Jair Alas M.D. mellitus Plan of Treatment Future Appointment(s):07/11/2019 8:00 am - Osmin Hicks MD at [facility] Usbkqzgunft54/14/2020 - RADHA Talley61.300D Unspecified open wound of right index finger with damage to nail, subsequent encounterReferral:Wound Clinic, Clinic/CenterFoll up:[facility]- please have records from Dr Clayton office sent overF17.210 Nicotine dependence, cigarettes, uncomplicated Functional Status Description No Information Available Mental Status Description No Information Available Referrals Refer to Reason for Referral Status Appt Date Wound Clinic Sent [facility] [place] [address] [phone] Alex Burton MD chronic fingertip pains, ? occ discharge, mainly L Sent middle finger [address] [place] [address] [phone]
--- OUTSIDE RECORDS SUMMARY | 2019-07-28 22:19 | XMS REPORT ---
:1985 Author Name LILLIAM METZGER Address [address] [facility] [address] [place] [address] Care Team Providers Name Role Phone LILLIAM METZGER Primary Care Physician Unavailable Allergies, Adverse Reactions, Alerts Allergy Code CodeSystem Reaction Severity Criticality Status Start Substance Date Moderate Medications Medication Medication Medication Start Stop Route Dose Status Fill Code CodeSystem Date Date Instructions RxNorm Relevant diagnostic tests/laboratory data Narrative No Information Procedures Procedure Code CodeSystem Target Date of Status Service Device Device Device Name Site Procedure Delivery Code Name UID Location SNOMED-CT () 2019-07-05 completed [facility] [address] [place], [address] [id number] SNOMED-CT () 2019-07-05 completed [facility] [address] [place], [address] [id number] Encounters/Encounter Diagnoses Encounter Encounter Diagnosis Diagnosis Diagnosis Date of Service Name Code Code Name CodeSystem Diagnosis Delivery Location Assessment H0001 SNOMED-CT 2019-07-05 [facility] [address] [place], [address] Vital Signs No Information Social History Element Description Description Start End Code CodeSystem AdditionalInfo Date Date SexAssignedAtBirth Male 1986-0 M AdministrativeGender 10-22 Hospital Discharge Instructions Reason For Referral Medical Equipment FDA Assessments
[2019-07-28] MEDS ORDERED: fentaNYL* 50 MCG/ML 2 ML VIAL (100 MCG VIAL) ONE (22:41)
[2019-07-28] MEDS ORDERED: Flumazenil* 0.1 MG/ML 5 ML MDV ONE (22:42)
[2019-07-28] MEDS ORDERED: Midazolam* 1 MG/ML 10 ML VIAL (10 MG) ONE (22:42)
[2019-07-28] MEDS ORDERED: Naloxone* 0.4 MG/ML 1 ML VIAL ONE (22:42)
[2019-07-28] MEDS ORDERED: Propofol* 100 ML ONE (22:56)
--- NOTE | 2019-07-28 23:32 | ED ---
ED Sedation - Procedural Sedation/Analgesia Sedation Course: RT Present, Emergency Airway Equipment Available, Informed Consent Obtained, Time Out Completed, End-tidal Capnography Utilized Adverse Reactions Experienced by Patient: None Mallampati Classification: Class II ASA Classification: Class I: Normal/Healthy Diagnosis: right shoulder dislocation Pre-Procedural Heart: S1 and S2 Pre-Procedural Lungs: Clear Auscultation Comment/Plan of Care: Reduction of right shoulder dislocation requiring procedural sedation with Versed, Fentanyl, and Propofol. Reduction performed by ROSA MARIA Gonzalez. Provider Procedure Attestation: With My Signature Below, I Attest to have Personally Reviewed and Agree with the Pre-Sedation History and Pre-Service Assessment Update Cleared for Moderate Sedation: Yes Pre-Procedural Diagnosis: right shoulder dislocation Post-Procedural Diagnosis: right shoulder dislocation reduced Procedure: reducation of right shoulder dislocation Estimated Blood Loss: None Specimen(s): None Findings: None Implants/Tubes/Drains Placed: None - Attestation Statements Document Initiated by Scribe: Yes Documenting Scribe: Sherry Metzger Provider For Whom Scribe is Documenting (Include Credential): Deborah Sage MD Scribe Attestation: Sherry Peoples, scribed for Deborah Sage MD on 07/28/19 at 2333. Status of Scribe Document: Ready
[2019-07-29 00:59] VITALS: BP 128/83
== END 2019-07-29 01:00 | disposition home or self-care (01) ==
LOC: ED 21:30
DX: S43.004A Unspecified dislocation of right shoulder joint, initial encounter (principal); M25.511 Pain in right shoulder; F17.210 Nicotine dependence, cigarettes, uncomplicated; X50.9XXA Other and unspecified overexertion or strenuous movements or postures, initial encounter; Y92.9 Unspecified place or not applicable
CPT/HCPCS: 23650; 99285; J2250; J2310; J2405; J2704; J3010